=== PATIENT | male | born 1980 | race Caucasian/White ===

== ENCOUNTER 2018-09-30 08:59 | Emergency (ER) | payer SELFPAY ==
--- NOTE | 2018-09-30 09:44 | UC ---
Shoulder Pain HPI - HPI Summary HPI Summary: Pt states approx 1 week ago devleoped discomfort right lateral shoulder. Pt denies trauma. pt states pain worse with abduction > 90 and external rotation. Pt ahs taken Motrin, Naproxyn, and APAP with some relief. states is slowly improving, but still present so came for eval. no paresthesia. no extremity weakness. Pt with RHD. Pt without repetive activity or sports. Pt states left work today to get it checked. no neck or back pain but posterior shoulder gets "tight" Pt's medications reviewed this visit - History of Current Complaint Chief Complaint: UCUpperExtremity Stated Complaint: SHOULDER PAIN Time Seen by Provider: 09/30/18 09:26 Hx Obtained From: Patient Onset/Duration: Gradual Onset Timing: Constant Pain Intensity: 6 - Allergies/Home Medications Allergies/Adverse Reactions: Allergies Allergy/AdvReac Type Severity Reaction Status Date / Time No Known Allergies Allergy Verified 09/30/18 09:08 Home Medications: Home Medications NK [No Home Medications Reported] 09/30/18 [History Confirmed 09/30/18] PMH/Surg Hx/FS Hx/Imm Hx Previously Healthy: Yes - Surgical History Surgical History: None - Family History Known Family History: Positive: Non-Contributory - Social History Occupation: Employed Full-time Lives: With Family Alcohol Use: None Substance Use Type: None Smoking Status (MU): Light Every Day Tobacco Smoker Type: Cigarettes Review of Systems All Other Systems Reviewed And Are Negative: Yes Constitutional: Positive: Negative Skin: Positive: Negative Musculoskeletal: Positive: Other: - right shoulder pain Neurological: Positive: Negative Physical Exam - Summary Physical Exam Summary: Vital Signs Reviewed: Yes A+Ox3, no distress Eyes: Conjunctiva Clear, ALEX. EOM intact and full ENT: Hearing grossly normal TM x 2 clear, mmoist, uvula midline, no exudate, no erythema Neck: Positive: Supple Respiratory: Positive: No respiratory distress, No accessory muscle use + CTA throughout no w/r Cardiovascular: RRR nl s1, s2 no m/r CBT <2 sec abd soft + BS nt/nd no guarding, no distension Musculoskeletal Exam: no pain spinous process c/t/l/s Full AROM c spine, + flext /ext elbow, wrist + pronate;supinate with right lateral shoudler pain with full supination pt with pain AROM right shoulder at 90 passive > pain with external rotation of shoulder, no pain internal + TTP trapezius, point TTP right lateral prox humerus Neurological: Positive: Alert, + sensation throughout 5/5 grast Psychological: Positive: Normal Response To Family Skin: Positive: no rash, no ecchymosis Triage Information Reviewed: Yes Vital Signs: Initial Vital Signs Temp 98.0 F 09/30/18 09:05 Pulse 70 09/30/18 09:05 Resp 18 09/30/18 09:05 BP 192/109 09/30/18 09:05 Pulse Ox 100 09/30/18 09:05 Diagnostics - Radiology No standard instances Radiology Interpretation Completed By: Radiologist - Patient Name: RHONDA DENG Medical Record#: [id number] Ordering Physician: Katy Bob MD Acct.#: [id number] : 1980 Age: 37 Sex: M Location: [facility] Exam Date: 09/30/18952 ADM Status: REG ER Order Information: SHOULDER RIGHT 2+ VWS Accession Number: [id number] CPT: 78793 INDICATION: Right anterior shoulder pain. TECHNIQUE: 4 views of the right shoulder were obtained. FINDINGS: The bones are in normal alignment. No fracture is seen. Joint spaces appear maintained. There are small calcifications adjacent to the superior lateral aspect of the humeral head. IMPRESSION: FINDINGS SUGGESTIVE OF CALCIFIC TENDINITIS. < Electronically signed by Slade Serrano MD in OV> 09/30/18 1018 Dictated By: Slade Serrano MD Dictated Date/Time: 09/30/18 1018 Transcribed Date/Time: 1017 Copy to: CC:Katy Bob MD; No Primary Care Phys,NOPCP Imaging - [facility] Imaging - [facility] Imaging [facility] Urgent [facility] [address] [address] ph ([phone]) ph [phone]) ph ) This report is only to be considered final once signed by the Provider(s) as displayed in the "<Electronically Signed by >" field (s). Absence of a signature indicates the report is in a draft status and still needs to be finalized. In the event this document was created by someone other than the signing Provider, the individual initiating the document will be listed in the "Entered by:" or "Dictated by:" yoder. of Re-Evaluation - Re-Evaluation First Eval Comment: reviewed xray with pt. called sport medicine - will see pt today 1:15 - ? cortisone injectin. placed in sling for comfort - related muscle spasm of trap - demonstrated small circles, bend.straigthen. pt comfortable and in agreement [facility] plan. work note. reviewe motrin/apap Shoulder Course/Dx - Course Course Of Treatment: Pt with discomfort right lateral shoulder - pain increases with external rotation, direct palpation and abduction. pt with muscle spasm right trapezius CSM distal intact. no trauma. Will check xray. decline analgesia. suspect tendonitis - Differential Dx/Diagnosis Provider Diagnosis: Rotator cuff tendinitis Discharge - Sign-Out/Discharge Documenting (check all that apply): Patient Departure All imaging exams completed and their final reports reviewed: Yes - Discharge Plan Condition: Stable Disposition: HOME Patient Education Materials: Rotator Cuff Tendinitis (ED), Tendinitis (ED) Forms: *Work Release Referrals: [facility] [Provider Group] (You have an appointment today at 1:45pm - please arrive 10 minutes early for paperwork) [facility]ERR[facility] [Outside] No Primary Care Phys,NOPCP [Primary Care Provider] - Additional Instructions: You have an appointment today at 1:45pm with the sports medicine team - please arrive 10 minutes early for paperwork Okay to take ibuprofen (Advil, Motrin) and tylenol as for discomfort Apply ice (20 minutes at a time, 3-4 times a day wear sling for comfort - take your arm our of your sling e times a day - slowly bend/straighten your elbow and make small circles with your shoulder as instructed today Your blood pressure was elevated at today's visit - it is recommended you follow -up with a primary doctor - you have been given contact information for the physicia referral center if you need assistance finding a primary care provider - Billing Disposition and Condition Condition: STABLE Disposition: Home
[2018-09-30 10:38] VITALS: BP 179/102
== END 2018-09-30 10:47 | disposition home or self-care (01) ==
LOC: UCEAST 08:59
DX: M75.91 Shoulder lesion, unspecified, right shoulder (principal); F17.210 Nicotine dependence, cigarettes, uncomplicated
CPT/HCPCS: 99211; G0463